=== PATIENT | male | born 1965 | race Caucasian/White ===

== ENCOUNTER 2017-06-24 06:35 | Emergency (ER) | payer OTHER, SELFPAY ==
[~2017-06-24] VITALS: Ht 175.3 cm; Wt 111.4 kg
[2017-06-24 06:35] VITALS: BP 164/95
[2017-06-24] MEDS ORDERED: LIDOCAINE 2% W/EPIN INJ 20ML **PRES FREE INJ ONE (07:45)
[2017-06-24] MEDS ORDERED: ADACEL/BOOSTRIX VACCINE (DIPHTH/PERTUSS/ACELL/TETANUS)0.5ML SYR (90715) IM ONE (08:30)
[2017-06-24] MEDS ORDERED: NEOSOPO OP (09:28)
--- NOTE | 2017-06-24 09:35 | REP ---
CT Head without contrast HISTORY: Trauma COMPARISON: None There is no intraparenchymal hemorrhage, acute infarct, mass or midline shift. The ventricular system is normal in appearance. There is no extra cerebral collection. There is no fracture. The visualized sinuses are clear. IMPRESSION: There is no intracranial lesion. Signed by Romeo Quach MD 06/24/2017 09:27 A
== END 2017-06-24 09:48 | disposition home or self-care (01) ==
LOC: M ED 06:35
DX: S01.91XA Laceration without foreign body of unspecified part of head, initial encounter (principal); I10 Essential (primary) hypertension; E11.9 Type 2 diabetes mellitus without complications; W22.8XXA Striking against or struck by other objects, initial encounter; Y92.89 Other specified places as the place of occurrence of the external cause; Y93.89 Activity, other specified; Y99.0 Civilian activity done for income or pay

== ENCOUNTER 2017-07-04 14:22 | Emergency (ER) | payer OTHER ==
[~2017-07-04] VITALS: Ht 175.3 cm; Wt 109.1 kg
[2017-07-04 14:22] VITALS: BP 138/85
[~2017-07-04 14:22] MED LIST: NEOSOPO OP
== END 2017-07-04 15:01 | disposition home or self-care (01) ==
LOC: M ED 14:22
DX: Z48.02 Encounter for removal of sutures (principal)

== ENCOUNTER 2019-01-22 15:40 | Emergency (ER) | payer OTHER, SELFPAY ==
[2019-01-22] MEDS ORDERED: SODIUM BICARBONATE 8.4% INJ 50MEQ 50 ML VIAL ONE (15:41)
[2019-01-22] MEDS ORDERED: AMIODARONE HCL 150 MG/100 ML PREMIXED BAG (NEXTERONE) ONE (15:41)
[2019-01-22] MEDS ORDERED: VECURONIUM BROMIDE 10 MG VIAL ONE (15:41)
[2019-01-22] MEDS ORDERED: ATROPINE SULF 1MG/10ML SYRINGE (J0461) ONE (15:41)
[2019-01-22] MEDS ORDERED: EPINEPHrine 1MG/10ML SYRINGE 1.5IN ONE (15:41)
[2019-01-22] MEDS ORDERED: NOREPINEPHRINE 4 MG/4 ML AMP ONE (15:41)
[2019-01-22] MEDS ORDERED: AMIODARONE HCL 150 MG in APPROPRIATE DILUENT 1 EA IV STA (15:52)
[2019-01-22] MEDS ORDERED: ATROPINE SULF 1MG/10ML SYRINGE (J0461) IV STA (15:56)
[2019-01-22] MEDS ORDERED: EPINEPHrine 1MG/10ML SYRINGE 1.5IN IV STA ×3 (15:59→16:32)
[2019-01-22] MEDS ORDERED: NS 1,000 ML IV ONE ×3 (16:00)
[2019-01-22] MEDS ORDERED: NS 1,000 ML IV STA (16:00)
--- NOTE | 2019-01-22 16:07 | REP ---
Clinical: Trauma. Findings: Multiple mildly displaced posterolateral left rib fractures with moderate subcutaneous emphysema noted. No obvious left lung consolidation or pneumothorax. Mediastinum and cardiac silhouette relatively normal. Right hemithorax appears clear. Impression: Multiple mildly displaced posterolateral left rib fractures with moderate subcutaneous emphysema. Electronically Signed by Gregg Alonso MD 01/22/2019 03:58 P
[2019-01-22 16:17] LABS: INR 1.18; PROTHROMBIN TIME 14.7 SECONDS (11.8-14.0)
[2019-01-22 16:18] LABS: PARTIAL THROMBOPLASTIN TIME 34.4 SECONDS (25.0-38.4)
[2019-01-22] MEDS ORDERED: VECURONIUM BROMIDE 10 MG VIAL IV STA (16:21)
[2019-01-22] MEDS ORDERED: ISOVUE-370 76% 100ML VIAL (Q9967) As Ordered ONE (16:25)
[2019-01-22 16:27] LABS: HEMATOCRIT 54.2 % (42.0-52.0); HEMOGLOBIN 17.6 g/dl (13.5-17.5); MEAN CORPUSCULAR HEMOGLOBIN 28.5 pg (27.0-33.0); MEAN CORPUSCULAR HGB CONC 32.5 g/dl (32.0-36.5); MEAN CORPUSCULAR VOLUME 87.7 fl (80.0-96.0); PLATELET COUNT, AUTOMATED 402 10^3/uL (150-450)
[2019-01-22 16:28] LABS: RED BLOOD COUNT 6.18 10^6/uL (4.30-6.10); WHITE BLOOD COUNT 10.9 10^3/uL (4.0-10.0)
[2019-01-22] MEDS ORDERED: SODIUM BICARBONATE 8.4% INJ 50 ML SYRINGE IV STA (16:32)
[2019-01-22 16:51] LABS: ALBUMIN 3.7 GM/DL (3.2-5.2); ALT/SGPT 118 U/L (12-78); AMYLASE 135 U/L (25-115); BILIRUBIN,DIRECT 0.2 MG/DL (0.0-0.2); BILIRUBIN,TOTAL 1.2 MG/DL (0.2-1.0); BLOOD UREA NITROGEN 13 MG/DL (7-18); CARBON DIOXIDE LEVEL 21 MEQ/L (21-32); CHLORIDE LEVEL 103 MEQ/L (98-107); CK-MB VALUE MASS 20.4 NG/ML (<3.6); CPK CREATINE PHOSPHOKINASE 366 U/L (39-308); CREATININE FOR GFR 1.58 MG/DL (0.70-1.30); ETHYL ALCOHOL (ETHANOL) < 0.003 % (0.000-0.010); GLOMERULAR FILTRATION RATE 48.7 (>56); GLUCOSE, FASTING 373 MG/DL (70-100); LIPASE 1593 U/L (73-393); MB/CK RELATIVE INDEX 5.57 (< OR =4); SODIUM LEVEL 142 MEQ/L (136-145); TOTAL PROTEIN 8.3 GM/DL (6.4-8.2); TROPONIN I 7.78 NG/ML (< 0.10)
--- NOTE | 2019-01-22 16:58 | REP ---
Clinical: Trauma . Comparison: 06/24/2017 . Findings: The ventricles, sulci, and cisterns are normal in position and appearance. Beauchamp-white differentiation is maintained. No acute intracranial hemorrhage, mass/mass effect, pathology or trauma/injury. No evidence for acute infarction. No extra-axial fluid collection. Calvarium is intact. Paranasal sinuses and mastoid air cells are clear. Impression: Normal noncontrast head CT. No evidence for acute intracranial pathology or trauma/injury. Electronically Signed by Gregg Alonso MD 01/22/2019 04:50 P
--- NOTE | 2019-01-22 17:00 | REP ---
Clinical: Trauma . Technique: Axial noncontrast images from the skull base to the thoracic inlet with coronal and sagittal re-formations Findings: Normal alignment is maintained. Mild degenerative changes in the at C5-6 and C4-5 with early osteophytes and minimal disc space narrowing noted. Cervical vertebral bodies including transverse processes and spinous processes are intact and there is no evidence for acute fracture / compression injury or subluxation. Spinal canal is patent. Posterior elements are intact. Paravertebral soft tissues are normal. Impression: Minimal degenerative changes. No evidence for acute pathology or trauma/injury. Electronically Signed by Gregg Alonso MD 01/22/2019 04:51 P
[2019-01-22 17:01] LABS: ATYPICAL LYMPH 2 % (0-5); BASOPHILS 1 % (0-4); EOSINOPHILS 1 % (0-5); LYMPHOCYTES 57 % (16-52); METAMYELOCYTES 1 % (0-0); MONOCYTES 4 % (0-8); MYELOCYTES 1 % (0-0); NEUTROPHILS 32 % (35-75); PLATELET ESTIMATE NORMAL (NORMAL)
--- NOTE | 2019-01-22 17:27 | REP ---
Clinical: Trauma. Technique: Axial contrast enhanced images from the thoracic inlet to the upper abdomen with coronal and sagittal re-formations. Findings: Innumerable comminuted displaced left 2nd through 11th rib fractures are appreciated along with extensive subcutaneous emphysema, small left pneumothorax, and scattered left upper lobe and left lower lobe consolidation/contusions and effusion. Right lower lobe consolidation/atelectasis/contusions and small pleural effusion is also appreciated. Emergent thoracotomy was performed and subtle acute traumatic sternal injuries cannot be excluded. Mediastinum demonstrates relatively normal thoracic aorta, pulmonary vasculature, and heart/pericardium without obvious cardiac or vascular injury. Small pericardial effusion and small amount of pneumopericardium noted. Endotracheal tube identified to the level of the mayco. Post traumatic changes including hematoma and soft tissue injury noted at the left thoracic inlet and axillary region and associated vascular injury cannot definitively be excluded. Impression: 1. Severe traumatic changes as described above including a comminuted displaced left rib fractures with associated pulmonary parenchymal contusions, left pleural effusion and small pneumothorax, subcutaneous emphysema, elements of pneumomediastinum and small pneumopericardium. 2. Surgical thoracotomy. 3. No obvious traumatic injury to the heart, thoracic aorta, or pulmonary vasculature. Hematoma and soft tissue injuries at the thoracic inlet cannot exclude a more distal vascular injury. Electronically Signed by Gregg Alonso MD 01/22/2019 05:18 P
[2019-01-22] MEDS ORDERED: EPINEPHrine 1MG/10ML SYRINGE 1.5IN As Ordered ONE ×6 (17:33→18:48)
[2019-01-22] MEDS ORDERED: SODIUM BICARBONATE 8.4% INJ 50 ML SYRINGE As Ordered ONE ×4 (17:33→18:20)
[2019-01-22 17:37] LABS: ABG BASE EXCESS -22.7 (-2.0-2.0); ABG HCO3 9.6 MEQ/L (22.0-26.0); ABG O2 SATURATION 88.4 % (95.0-99.0); ABG PARTIAL PRESSURE CO2 56.3 mmHg (35.0-45.0); ABG STANDARD HCO3 7.2 MEQ/L (22.0-26.0); ABG TOTAL CO2 11.3 MEQ/L (22.0-29.0)
[2019-01-22 17:39] LABS: ABG pH (ARTERIAL) 6.849 UNITS (7.350-7.450)
[2019-01-22 17:52] LABS: HEMATOCRIT 22.3 % (42.0-52.0); MEAN CORPUSCULAR HEMOGLOBIN 28.5 pg (27.0-33.0); MEAN CORPUSCULAR HGB CONC 30.9 g/dl (32.0-36.5); MEAN CORPUSCULAR VOLUME 92.1 fl (80.0-96.0); PLATELET COUNT, AUTOMATED 135 10^3/uL (150-450); RED BLOOD COUNT 2.42 10^6/uL (4.30-6.10); WHITE BLOOD COUNT 8.1 10^3/uL (4.0-10.0)
[2019-01-22 17:53] LABS: HEMOGLOBIN 6.9 g/dl (13.5-17.5)
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
[2019-01-22] MEDS ORDERED: PHENYLEPHRINE INJ 10MG/ML VIAL (J2370) As Ordered ONE (17:55)
[2019-01-22] MEDS ORDERED: PHENYLephrine HCL 500 MCG/5 ML (100MCG/ML) SYRINGE (J2370) As Ordered ONE (17:55)
[2019-01-22] MEDS ORDERED: CALCIUM CHLORIDE 10% 1 GM/10 ML SYR As Ordered ONE (18:21)
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
== END 2019-01-22 17:15 | disposition expired ==
LOC: M ED 15:40
DX: R58 Hemorrhage, not elsewhere classified (principal); I31.4 Cardiac tamponade; I46.9 Cardiac arrest, cause unspecified; V29.49XA Motorcycle driver injured in collision with other motor vehicles in traffic accident, initial encounter; Y92.410 Unspecified street and highway as the place of occurrence of the external cause; S35.49 Other specified injury of renal blood vessel; S22.42XA Multiple fractures of ribs, left side, initial encounter for closed fracture; S27.329A Contusion of lung, unspecified, initial encounter; J90 Pleural effusion, not elsewhere classified; J93.9 Pneumothorax, unspecified; T79.7XXA Traumatic subcutaneous emphysema, initial encounter; T79.4XXA Traumatic shock, initial encounter
CPT/HCPCS: 36430; 36556; 36600; 39010; 50010; 70450; 71045; 71260; 72125; 74177; 80047; 80048; 80076; 82150; 82550; 82553; 82803; 83690; 84484; 85025; 85027; 85610; 85730; 86850; 86900; 86901; 86920; 86927; 92950; 93041; 96365; 96366; 96375; 96376; 99291; A6024; G0480; J0461; J2370; P9016; P9017; Q9967

== ENCOUNTER → 2019-01-24 | Outpatient (REF) | LOC: M LAB 09:35 ==